=== PATIENT | female | born 1990 | race Caucasian/White ===

== ENCOUNTER → 2016-04-09 | Outpatient (CLI) | payer BC, MEDICAID ==
[~2016-04-09] MED LIST: /MOM400 PO; ACET50TA PO; ANUS2.5C2 PR; BUSP10TA GT; DOCU10ELUD; HEMOSUP20 PR; IBUP80TA PO; LEVO125T3 PO; PRENTAB9 PO; TUMS500C PO
[2016-04-09 13:33] LABS: FREE T4 1.19 NG/DL (0.76-1.46)
== END ==
LOC: M SMT 10:07
PROVIDERS: ATTEND Obstetrics & Gynecology
DX: E07.9 Disorder of thyroid, unspecified (principal)

== ENCOUNTER → 2016-04-14 | Outpatient (REF) | payer BC, MEDICAID | LOC: M LABDRWAD 19:55 | PROVIDERS: ATTEND Obstetrics & Gynecology | DX: N91.2 Amenorrhea, unspecified (principal) ==

== ENCOUNTER → 2016-04-16 | Outpatient (CLI) | payer BC, MEDICAID | LOC: M LAB 12:16 | PROVIDERS: ATTEND Obstetrics & Gynecology | DX: N91.2 Amenorrhea, unspecified (principal) ==

== ENCOUNTER → 2016-05-06 | Outpatient (CLI) | payer BC, MEDICAID ==
[2016-05-06 14:40] LABS: FREE T4 1.18 NG/DL (0.76-1.46)
== END ==
LOC: M SMT 10:26
PROVIDERS: ATTEND Obstetrics & Gynecology
DX: Z34.81 Encounter for supervision of other normal pregnancy, first trimester (principal); Z36 Encounter for antenatal screening of mother

== ENCOUNTER → 2016-05-20 | Outpatient (CLI) | payer BC, MEDICAID ==
[2016-05-20 13:47] LABS: BASO % 0.5 % (0.0-1.0); EOS # 0.1 K/mm3 (0.0-0.50); EOS % 1.7 % (0.0-3.0); LARGE UNSTAINED CELL # 0.1 K/mm3 (0.0-0.4); LARGE UNSTAINED CELL % 1.5 % (0.0-4.0); LYMPH # 1.5 K/mm3 (1.5-6.5); LYMPH % 21.7 % (24.0-44.0); MEAN CORPUSCULAR HEMOGLOBIN 32.2 pg (27.0-33.0); MEAN CORPUSCULAR HGB CONC 34.4 g/dl (32.0-36.5); MEAN CORPUSCULAR VOLUME 93.6 fl (80.0-96.0); MONO # 0.4 K/mm3 (0.0-0.8); MONO % 5.4 % (0.0-5.0); NEUTROPHILS # 4.5 K/mm3 (1.8-7.7); NEUTROPHILS % 69.2 % (36.0-66.0); PLATELET COUNT, AUTOMATED 207 k/mm3 (150-450); RED CELL DISTRIBUTION WIDTH 12.4 % (11.5-14.5); WHITE BLOOD COUNT 6.5 K/mm3 (4.0-10.0)
[2016-05-20 14:12] LABS: CONTROL LINE INT CTR LINE PRESENT; HIV SCRN NEGATIVE (NEGATIVE); HIV SCRN1 NEGATIVE (NEGATIVE)
[2016-05-21 10:01] LABS: HBsAg Prenatal NEGATIVE (NEGATIVE)
== END ==
LOC: M SMT 08:44
PROVIDERS: ATTEND Obstetrics & Gynecology
DX: Z34.81 Encounter for supervision of other normal pregnancy, first trimester (principal); Z36 Encounter for antenatal screening of mother

== ENCOUNTER → 2016-05-27 | Outpatient (CLI) | payer BC, MEDICAID | LOC: M SMT 09:44 | PROVIDERS: ATTEND Obstetrics & Gynecology | DX: Z36 Encounter for antenatal screening of mother (principal); Z3A.09 9 weeks gestation of pregnancy ==

== ENCOUNTER → 2016-06-10 | Outpatient (CLI) | payer BC, MEDICAID ==
[2016-06-10 13:51] LABS: FREE T4 1.25 NG/DL (0.76-1.46)
== END ==
LOC: M SMT 09:35
PROVIDERS: ATTEND Obstetrics & Gynecology
DX: O99.281 Endocrine, nutritional and metabolic diseases complicating pregnancy, first trimester (principal)

== ENCOUNTER → 2016-07-10 | Outpatient (CLI) | payer BC, MEDICAID ==
[2016-07-10 13:56] LABS: FREE T4 1.15 NG/DL (0.76-1.46)
== END ==
LOC: M SMT 10:47
PROVIDERS: ATTEND Advanced Practice Midwife
DX: Z34.82 Encounter for supervision of other normal pregnancy, second trimester (principal); Z36 Encounter for antenatal screening of mother

== ENCOUNTER → 2016-09-19 | Outpatient (CLI) | payer BC, MEDICAID ==
[2016-09-19 13:03] LABS: MEAN CORPUSCULAR HEMOGLOBIN 33.9 pg (27.0-33.0); MEAN CORPUSCULAR HGB CONC 35.5 g/dl (32.0-36.5); MEAN CORPUSCULAR VOLUME 95.7 fl (80.0-96.0); RED CELL DISTRIBUTION WIDTH 12.5 % (11.5-14.5); WHITE BLOOD COUNT 10.1 K/mm3 (4.0-10.0)
[2016-09-19 13:33] LABS: FREE T4 1.16 NG/DL (0.76-1.46)
== END ==
LOC: M SMT 09:47
PROVIDERS: ATTEND Advanced Practice Midwife
DX: Z34.82 Encounter for supervision of other normal pregnancy, second trimester (principal); Z36 Encounter for antenatal screening of mother

== ENCOUNTER → 2016-11-27 | Outpatient (REF) | payer BC, MEDICAID ==
[~2016-11-27] MED LIST changes: +IBUP-1114 PO; -LEVO125T3 PO; +LEVO125T4 PO; +LEVO137T2 PO
== END ==
LOC: M LAB REF 13:27
PROVIDERS: ATTEND Advanced Practice Midwife
DX: Z34.83 Encounter for supervision of other normal pregnancy, third trimester (principal); Z36 Encounter for antenatal screening of mother

== ENCOUNTER → 2016-12-01 | Outpatient (CLI) | payer BC, MEDICAID ==
[2016-12-01 12:45] LABS: FREE T4 0.98 NG/DL (0.76-1.46)
== END ==
LOC: M LAB 11:06
PROVIDERS: ATTEND Advanced Practice Midwife
DX: Z34.83 Encounter for supervision of other normal pregnancy, third trimester (principal); Z36 Encounter for antenatal screening of mother

== ENCOUNTER 2016-12-21 15:37 | Outpatient (CLI) | payer BC, MEDICAID ==
[~2016-12-21] VITALS: Ht 172.7 cm; Wt 125.4 kg
[~2016-12-21 15:37] MED LIST changes: -IBUP-1114 PO; -LEVO137T2 PO
[2016-12-21 16:06] VITALS: BP 138/88
[2016-12-21] MEDS ORDERED: LEVO137T2 PO (16:16)
== END 2016-12-21 17:25 | disposition home or self-care (01) ==
LOC: M LDO 15:37
PROVIDERS: ATTEND Obstetrics & Gynecology
DX: O47.1 False labor at or after 37 completed weeks of gestation (principal); Z3A.39 39 weeks gestation of pregnancy; Z91.040 Latex allergy status

== ENCOUNTER 2016-12-24 21:31 | Inpatient (IN) | payer BC, MEDICAID ==
[~2016-12-24] VITALS: Ht 175.3 cm; Wt 126.0 kg
[~2016-12-24 21:31] MED LIST changes: +LEVO137T2 PO
[2016-12-24 21:44] VITALS: BP 132/68
[2016-12-24] MEDS ORDERED: PENICILLIN G POTASSIUM IV 5 MU in D5W MINI-BAG PLUS 100 ML IV ONE (22:00)
[2016-12-24] MEDS ORDERED: PENICILLIN G POTASSIUM 5 MU VIAL As Ordered ONE (22:03)
[2016-12-24 22:24] LABS: MEAN CORPUSCULAR HEMOGLOBIN 32.7 pg (27.0-33.0); MEAN CORPUSCULAR HGB CONC 36.2 g/dl (32.0-36.5); MEAN CORPUSCULAR VOLUME 90.5 fl (80.0-96.0); RED CELL DISTRIBUTION WIDTH 13.5 % (11.5-14.5); WHITE BLOOD COUNT 11.3 K/mm3 (4.0-10.0)
[2016-12-24] MEDS ORDERED: OXYTOCIN 30 UNITS IN 0.9% NaCl 500ML IV BAG (J2590) As Ordered ONE (22:26)
[2016-12-24 22:30] VITALS: BP 130/69
[2016-12-24] MEDS: IBUPROFEN 800 MG TAB PO PRN (22:45)
[2016-12-24] MEDS ORDERED: OXYTOCIN DRIP 30 UNITS in APPROPRIATE DILUENT 1 EA IV ONE (22:45)
[2016-12-24] MEDS ORDERED: ACETAMINOPHEN 500 MG TAB PO PRN (22:45)
[2016-12-24] MEDS ORDERED: METHYLERGONOVINE MALEATE 0.2 MG TAB PO PRN (22:45)
[2016-12-24] MEDS ORDERED: DOCUSATE SODIUM 100 MG CAP PO PRN (22:45)
[2016-12-24] MEDS ORDERED: MEASLES,MUMPS,RUBELLA VACCINE INJ (MMR-II) (90707) SC SCH (22:45)
[2016-12-24] MEDS ORDERED: DIBUCAINE 1% OINTMENT 30GM TOP PRN (22:45)
[2016-12-24 22:49] VITALS: BP 137/63
[2016-12-24 23:04] VITALS: BP 135/69
[2016-12-24 23:19] VITALS: BP 131/66
[2016-12-25 00:10] VITALS: BP 133/70
[2016-12-25 06:33] VITALS: BP 123/72
--- NOTE | 2016-12-25 07:05 | HPE ---
DATE OF ADMISSION: 12/24/2016 HISTORY OF PRESENT ILLNESS: A 26-year-old 6, para 2 female at 40 and 2/7 weeks gestation by last menstrual period (LMP) consistent with seven-week ultrasound, estimated date of confinement (EDC) 12/22/2016, presents with regular contractions every 5-6 minutes for the last several hours. She experienced a gush of fluid in the parking lot after arriving at the hospital, and continues to leak. Her contractions increased in intensity. COURSE: Initiated care at nine weeks gestation at 05/20/2016. Her blood pressure 118/74. course was unremarkable. OBSTETRICAL HISTORY: 1. April 2012: 41-week vaginal delivery, 7 pound 10 ounce male. 2. January 2015: 40-week vaginal delivery, 7 pound 13 ounce female infant. She has also had three miscarriages. MEDICAL HISTORY: Hypothyroidism on Synthroid. SURGICAL HISTORY: None. ALLERGIES: None. SOCIAL HISTORY: The patient is . Denies cigarettes, alcohol or drug use. FAMILY HISTORY: Noncontributory. PHYSICAL EXAMINATION: Blood pressure 132/84. She appears uncomfortable. HEAD/NECK: Normal. LUNGS: Clear. HEART: Regular rate and rhythm. ABDOMEN: Nontender, gravid. heart tones category one. STERILE VAGINAL EXAM: 6 cm, 90% effaced, -1 station, grossly ruptured, clear fluid. EXTREMITIES: Nontender. LABORATORY DATA: Blood type O positive. Rubella immune. RPR nonreactive. Hepatitis B and C negative. HIV negative. GBS positive. ASSESSMENT: A 26-year-old 6, para 2 female at 40 and 2/7 weeks gestation, presents in active labor with ruptured membranes. The patient is admitted on 12/24/2016. Plan to start antibiotics for group B streptococcus (GBS) prophylaxis.
[2016-12-25] MEDS: IBUPROFEN 800 MG TAB PO PRN ×3 (08:17→23:42)
[2016-12-25] MEDS: PRENATAL VITAMINS CHEWABLE TABLET PO SCH (08:17)
--- NOTE | 2016-12-25 08:47 | DN ---
DATE: 12/24/2016 PREDELIVERY DIAGNOSIS: 40 plus weeks labor. POST DELIVERY DIAGNOSIS: Delivered. PROCEDURE: Spontaneous vaginal delivery. SHIRT OPERATOR: Dr. Jarvis Phillips. ANESTHESIA: None. ESTIMATED BLOOD LOSS: 300 mL. FINDINGS: 7 pound 8 ounce female infant, 3400 grams, 8 and 9. DELIVERY SUMMARY: After a short second stage, the patient had spontaneous delivery of a 7 pound 8 ounce female with no delivered anesthesia. Loose nuchal cord times one was reduced. Manually the shoulders delivered with ease. The cried spontaneously and was handed to the mother. The cord was doubly clamped and cut. Placenta delivered spontaneously and appeared to be intact. Patient received IV Pitocin after delivery of the placenta. There were no vaginal lacerations present. There were no sponges to count.
[2016-12-25] MEDS: LEVOTHYROXINE 137MCG TABLET (0.137MG) PO SCH (09:22)
[2016-12-25] MEDS: RHOGAM 300 MCG (1500 IU) INJ (J2790) IM SCH (10:21)
[2016-12-25 17:58] VITALS: BP 126/76
[2016-12-26 06:27] VITALS: BP 121/68
[2016-12-26] MEDS: LEVOTHYROXINE 137MCG TABLET (0.137MG) PO SCH (06:56)
[2016-12-26] MEDS: IBUPROFEN 800 MG TAB PO PRN (07:01)
[2016-12-26] MEDS ORDERED: ACET50TA PO (09:12)
[2016-12-26] MEDS ORDERED: IBUP-1114 PO (09:12)
[2016-12-26] MEDS: PRENATAL VITAMINS CHEWABLE TABLET PO SCH (09:56)
== END 2016-12-26 15:00 | disposition home or self-care (01) | DRG 560 ==
LOC: M LDI 21:31 → M OBS 12-25
PROVIDERS: ADMIT Specialist; ATTEND Specialist
PROC: 10E0XZZ Delivery of Products of Conception, External Approach (ICD-10-PCS; principal; 2016-12-24)
DX: O48.0 Post-term pregnancy (principal); O69.82X0 Labor and delivery complicated by other cord entanglement, without compression, not applicable or unspecified; Z37.0 Single live birth; Z3A.40 40 weeks gestation of pregnancy

== ENCOUNTER → 2017-03-19 | Outpatient (CLI) | payer BC, MEDICAID ==
[~2017-03-19] MED LIST changes: +IBUP-1114 PO
[2017-03-19 14:23] LABS: FREE T4 1.15 NG/DL (0.76-1.46)
== END ==
LOC: M SMT 09:23
PROVIDERS: ATTEND Advanced Practice Midwife
DX: E03.9 Hypothyroidism, unspecified (principal)

== ENCOUNTER → 2017-07-01 | Outpatient (CLI) | payer BC, MEDICAID ==
[2017-07-01 14:31] LABS: FREE T4 0.94 NG/DL (0.76-1.46)
== END ==
LOC: M SMT 10:28
DX: E07.9 Disorder of thyroid, unspecified (principal)

== ENCOUNTER → 2017-09-07 | Outpatient (CLI) | payer BC, MEDICAID ==
[2017-09-07 11:29] LABS: FREE T4 0.95 NG/DL (0.76-1.46)
== END ==
LOC: M SMT 09:19
DX: E03.9 Hypothyroidism, unspecified (principal)
CPT/HCPCS: 84443

== ENCOUNTER → 2017-12-14 | Outpatient (CLI) | payer BC, MEDICAID ==
[2017-12-14 23:10] LABS: FREE T4 1.02 NG/DL (0.76-1.46)
== END ==
LOC: M SMT 09:48
DX: O99.281 Endocrine, nutritional and metabolic diseases complicating pregnancy, first trimester (principal); Z3A.00 Weeks of gestation of pregnancy not specified
CPT/HCPCS: 84443

== ENCOUNTER → 2017-12-21 | Outpatient (CLI) | payer BC, MEDICAID ==
[2017-12-21 15:08] LABS: HCG, SERUM QUANTITATIVE 669 MIU/ML
== END ==
LOC: M SMT 09:08
DX: Z32.01 Encounter for pregnancy test, result positive (principal)
CPT/HCPCS: 84702

== ENCOUNTER → 2017-12-23 | Outpatient (CLI) | payer BC, MEDICAID ==
[2017-12-23 11:18] LABS: HCG, SERUM QUANTITATIVE 1538 MIU/ML
== END ==
LOC: M SMT 09:07
DX: Z32.01 Encounter for pregnancy test, result positive (principal)
CPT/HCPCS: 84702

== ENCOUNTER → 2018-01-14 | Outpatient (CLI) | payer BC, MEDICAID ==
[2018-01-14 13:48] LABS: FREE T4 1.11 NG/DL (0.76-1.46)
== END ==
LOC: M SMT 09:13
DX: Z34.81 Encounter for supervision of other normal pregnancy, first trimester (principal); Z36.89 Encounter for other specified antenatal screening
CPT/HCPCS: 84443

== ENCOUNTER → 2018-01-30 | Outpatient (CLI) | payer BC, MEDICAID ==
[2018-01-30 10:29] LABS: BASO % 0.6 % (0.0-1.0); EOS # 0.1 10^3/uL (0.0-0.50); EOS % 1.4 % (0.0-3.0); HEMATOCRIT 39.1 % (36.0-47.0); HEMOGLOBIN 13.8 g/dl (12.0-15.5); IMMATURE GRANULOCYTE % 0.3 % (0-3.0); LYMPH # 1.6 10^3/uL (1.5-6.5); LYMPH % 24.6 % (24.0-44.0); MEAN CORPUSCULAR HEMOGLOBIN 32.5 pg (27.0-33.0); MEAN CORPUSCULAR HGB CONC 35.3 g/dl (32.0-36.5); MONO # 0.4 10^3/uL (0.0-0.8); MONO % 6.7 % (0.0-5.0); NEUTROPHILS # 4.3 10^3/uL (1.8-7.7); NEUTROPHILS % 66.4 % (36.0-66.0); PLATELET COUNT, AUTOMATED 179 10^3/uL (150-450); RED BLOOD COUNT 4.25 10^6/uL (4.00-5.40); RED CELL DISTRIBUTION WIDTH 12.8 % (11.5-14.5); WHITE BLOOD COUNT 6.4 10^3/uL (4.0-10.0)
[2018-01-30 14:08] LABS: CHLAMYDIA DNA AMPLIFICATION NEGATIVE (NEGATIVE); GC DNA AMPLIFICATION NEGATIVE (NEGATIVE)
[2018-02-01 11:12] LABS: HEPATITIS C VIRUS ABY INDEX < 0.0 INDEX (<0.8)
[2018-02-01 11:12] LABS: HBsAg Prenatal NEGATIVE (NEGATIVE); HIV 1&2 SCREEN CENTAUR NEGATIVE (NEGATIVE); RUBELLA IgG QUALITATIVE IMMUNE (IMMUNE)
== END ==
LOC: M LAB 09:00
DX: Z34.81 Encounter for supervision of other normal pregnancy, first trimester (principal); Z36.89 Encounter for other specified antenatal screening; Z3A.01 Less than 8 weeks gestation of pregnancy
CPT/HCPCS: 86762

== ENCOUNTER → 2018-02-01 | Outpatient (CLI) | payer BC, MEDICAID | LOC: M SMT 11:15 | DX: Z36.89 Encounter for other specified antenatal screening (principal); Z3A.00 Weeks of gestation of pregnancy not specified | CPT/HCPCS: 36415 ==

== ENCOUNTER → 2018-02-10 | Outpatient (CLI) | payer BC, MEDICAID ==
[2018-02-10 14:29] LABS: FREE T4 1.14 NG/DL (0.76-1.46)
== END ==
LOC: M SMT 09:50
DX: O99.281 Endocrine, nutritional and metabolic diseases complicating pregnancy, first trimester (principal)
CPT/HCPCS: 84443

== ENCOUNTER 2018-04-19 01:43 | Emergency (ER) | payer BC, MEDICAID ==
[~2018-04-19] VITALS: Ht 175.3 cm; Wt 105.9 kg
[~2018-04-19 01:43] MED LIST changes: +CEFD300CAP PO; +MAPA500T2 PO
[2018-04-19] MEDS ORDERED: MAGN400C2 PO (01:58)
[2018-04-19] MEDS: ONDANSETRON 4MG/2ML VIAL (J2405) IV ONE ×2 (03:15→04:01)
[2018-04-19] MEDS ORDERED: NS 1,000 ML IV ONE (03:15)
[2018-04-19 03:30] LABS: BASO % 0.2 % (0.0-1.0); EOS % 0.3 % (0.0-3.0); HEMATOCRIT 37.8 % (36.0-47.0); HEMOGLOBIN 13.5 g/dl (12.0-15.5); LYMPH % 7.4 % (24.0-44.0); MEAN CORPUSCULAR HEMOGLOBIN 33.8 pg (27.0-33.0); MEAN CORPUSCULAR HGB CONC 35.7 g/dl (32.0-36.5); MEAN CORPUSCULAR VOLUME 94.5 fl (80.0-96.0); MONO # 0.6 10^3/uL (0.0-0.8); MONO % 4.6 % (0.0-5.0); NEUTROPHILS # 11.9 10^3/uL (1.8-7.7); NEUTROPHILS % 86.4 % (36.0-66.0); PLATELET COUNT, AUTOMATED 172 10^3/uL (150-450); WHITE BLOOD COUNT 13.8 10^3/uL (4.0-10.0)
[2018-04-19 04:02] LABS: BLOOD UREA NITROGEN 8 MG/DL (7-18); CALCIUM LEVEL 8.2 MG/DL (8.5-10.1); CARBON DIOXIDE LEVEL 21 MEQ/L (21-32); CHLORIDE LEVEL 109 MEQ/L (98-107); CREATININE FOR GFR 0.48 MG/DL (0.55-1.30); GLOMERULAR FILTRATION RATE > 60.0 (>60); GLUCOSE, FASTING 97 MG/DL (70-100); MAGNESIUM LEVEL 1.9 MG/DL (1.8-2.4); POTASSIUM SERUM 3.8 MEQ/L (3.5-5.1); SODIUM LEVEL 139 MEQ/L (136-145)
[2018-04-19 06:30] VITALS: BP 121/60
[2018-04-19] MEDS ORDERED: VANC125C2 PO (09:21)
--- NOTE | 2018-04-19 09:23 | ED PDOC ---
Post-Departure Follow-Up AFTER DISCHARGE, RESULTS OF CDIFF CAME BACK POSITIVE. PATIENT NOTIFIED BY, RX F OR MANJUO SENT TO PREFERRED PHARMACY, AND DR SCHMIDT NOTIFIED FOR FOLLOW UP CARE. ANNALISE GUO, DO Apr 19, 2018 09:22
--- NOTE | 2018-04-19 14:49 | ECGEPIP ---
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
== END 2018-04-19 06:48 | disposition home or self-care (01) ==
LOC: M ED 01:43
DX: I95.1 Orthostatic hypotension (principal); R55 Syncope and collapse

== ENCOUNTER → 2018-04-29 | Outpatient (REF) | payer BC, MEDICAID ==
[~2018-04-29] MED LIST changes: +MAGN400C2 PO; +VANC125C2 PO
== END ==
LOC: M SFHCPLAZ 12:14
PROVIDERS: ATTEND Nurse Practitioner Family
DX: A04.72 Enterocolitis due to Clostridium difficile, not specified as recurrent (principal)

== ENCOUNTER → 2018-05-07 | Outpatient (REF) | payer BC, MEDICAID | LOC: M SFHCPLAZ 12:21 | PROVIDERS: ATTEND Nurse Practitioner Family | DX: J11.1 Influenza due to unidentified influenza virus with other respiratory manifestations (principal); A04.72 Enterocolitis due to Clostridium difficile, not specified as recurrent; Z53.9 Procedure and treatment not carried out, unspecified reason ==

== ENCOUNTER → 2018-05-08 | Outpatient (CLI) | payer BC, MEDICAID ==
[2018-05-08 11:06] LABS: BLOOD UREA NITROGEN 3 MG/DL (7-18); CALCIUM LEVEL 7.9 MG/DL (8.5-10.1); CARBON DIOXIDE LEVEL 27 MEQ/L (21-32); CHLORIDE LEVEL 106 MEQ/L (98-107); CREATININE FOR GFR 0.47 MG/DL (0.55-1.30); GLOMERULAR FILTRATION RATE > 60.0 (>60); GLUCOSE, FASTING 84 MG/DL (70-100); POTASSIUM SERUM 3.7 MEQ/L (3.5-5.1); SODIUM LEVEL 140 MEQ/L (136-145)
== END ==
LOC: M LAB 10:06
PROVIDERS: ATTEND Nurse Practitioner Family
DX: A04.72 Enterocolitis due to Clostridium difficile, not specified as recurrent (principal)

== ENCOUNTER → 2018-05-28 | Outpatient (CLI) | payer BC, MEDICAID ==
[2018-05-28 18:42] LABS: FREE T4 1.06 NG/DL (0.76-1.46); THYROID STIMULATING HORMONE 1.6 uIU/ML (0.358-3.740)
== END ==
LOC: M SMT 14:57
PROVIDERS: ATTEND Advanced Practice Midwife
DX: O99.282 Endocrine, nutritional and metabolic diseases complicating pregnancy, second trimester (principal)

== ENCOUNTER → 2018-06-03 | Outpatient (REF) | payer BC, MEDICAID | LOC: M LAB REF 12:55 | PROVIDERS: ATTEND Advanced Practice Midwife | DX: Z34.82 Encounter for supervision of other normal pregnancy, second trimester (principal); Z3A.00 Weeks of gestation of pregnancy not specified ==

== ENCOUNTER → 2018-06-10 | Outpatient (REF) | payer BC, MEDICAID | LOC: M LAB REF 17:26 | PROVIDERS: ATTEND Obstetrics & Gynecology | DX: Z34.82 Encounter for supervision of other normal pregnancy, second trimester (principal) ==

== ENCOUNTER → 2018-06-14 | Outpatient (CLI) | payer BC, MEDICAID ==
[2018-06-14 13:20] LABS: HEMATOCRIT 36.9 % (36.0-47.0); HEMOGLOBIN 12.8 g/dl (12.0-15.5); MEAN CORPUSCULAR HEMOGLOBIN 33.4 pg (27.0-33.0); MEAN CORPUSCULAR HGB CONC 34.7 g/dl (32.0-36.5); MEAN CORPUSCULAR VOLUME 96.3 fl (80.0-96.0); PLATELET COUNT, AUTOMATED 151 10^3/uL (150-450); RED BLOOD COUNT 3.83 10^6/uL (4.00-5.40); WHITE BLOOD COUNT 9.1 10^3/uL (4.0-10.0)
[2018-06-14 13:53] LABS: GLUCOSE CHALLENGE TEST 1 HOUR 98 MG/DL (LESS THAN 140)
[2018-06-14 14:20] LABS: HIV 1&2 SCREEN CENTAUR NEGATIVE (NEGATIVE)
== END ==
LOC: M SMT 09:42
PROVIDERS: ATTEND Advanced Practice Midwife
DX: Z34.82 Encounter for supervision of other normal pregnancy, second trimester (principal); Z36.89 Encounter for other specified antenatal screening

== ENCOUNTER 2018-08-01 23:11 | Outpatient (CLI) | payer BC, MEDICAID ==
[~2018-08-01] VITALS: Ht 172.7 cm; Wt 116.3 kg
[~2018-08-01 23:11] MED LIST changes: -/MOM400 PO; -ACET50TA PO; -DOCU10ELUD; +DOCU5LIQ; +MAPA500T17 PO; +MILK10SU PO; -VANC125C2 PO; +VANC125C3 PO
== END 2018-08-02 00:17 | disposition home or self-care (01) ==
LOC: M LDO 23:11
PROVIDERS: ATTEND Obstetrics & Gynecology
DX: O26.893 Other specified pregnancy related conditions, third trimester (principal); Z3A.36 36 weeks gestation of pregnancy
CPT/HCPCS: 59025; 87081; G0378; G0463

== ENCOUNTER 2018-08-20 04:15 | Inpatient (IN) | payer BC, MEDICAID ==
[~2018-08-20] VITALS: Ht 172.7 cm; Wt 118.6 kg
[2018-08-20 04:38] VITALS: BP 132/64
[2018-08-20] MEDS ORDERED: ACETAMINOPHEN TAB 650MG DOSE (2X325MG) PO PRN (04:45)
[2018-08-20] MEDS ORDERED: DOCUSATE SODIUM 100 MG CAP PO PRN (04:45)
[2018-08-20] MEDS ORDERED: DIBUCAINE 1% OINTMENT 30GM TOP PRN (04:45)
[2018-08-20] MEDS ORDERED: MEASLES,MUMPS,RUBELLA VACCINE INJ (MMR-II) (90707) SC SCH (04:45)
[2018-08-20] MEDS ORDERED: RHOGAM 300 MCG (1500 IU) INJ (J2790) IM SCH (04:45)
[2018-08-20] MEDS ORDERED: PROMETHAZINE 25 MG TAB PO PRN (04:45)
[2018-08-20] MEDS ORDERED: IBUPROFEN 600 MG TAB PO PRN (04:45)
[2018-08-20] MEDS ORDERED: ONDANSETRON 4MG/2ML VIAL (J2405) IV PRN (04:45)
[2018-08-20] MEDS: IBUPROFEN 800 MG TAB PO PRN ×2 (04:48→13:41)
--- NOTE | 2018-08-20 04:48 | NUR ---
L&D H&P HPI: 27 year old at 38+5 weeks estimated gestation. Expected date of confinement: 08/29/18. dated by LMP c/w first TM US. Presented in the s econd stage of labor. Arrived by ambulance. Complains of contractions every 2-3 min. Denies vaginal bleeding, loss of fluid. Reports regular movement. course: Hypothyroidism labs: Blood type O+, antibody screen negative, rubella immune, VDRL nonreactive , hepatitis B surface antigen negative, HIV negative, hepatitis C antibody negative, GC/CT negative, aneuploidy/maternal serum screening: low risk, Panorama, 1 hour glucose challenge test: 98, GBS negative History Past medical history: Hypothyroidism, depression Surgical history: none Medications: PNV, Synthroid 125mcg daily Allergies: NKDA MEDICAL CUSTOMER SERVICE REPRESENTATIVE history: no dysplasia or STI/gHSV OB history: x 3 all term. SAB x 3. Social history: no t/e/d Family history: none Objective Vitals: Normotensive, normal heart rate, afebrile Heart: Regular rate and rhythm. No murmurs, rubs or gallops. Lungs: Clear to auscultation bilaterally. No wheezes, crackles, rales or rhonchi. Abdomen: Uterine fundal height consistent with dates. No guarding or rebound tenderness. Extremities: No clubbing, cyanosis or edema. Normal deep tendon reflexes. Sterile vaginal exam: 10 cm, 100 %effacement, 0 station, cephalic, intact External monitoring: heart rate category 1 Tocodynamometer: contractions occurring every 2-3 min Assessment/Plan 27 year old at 38+5 weeks gestation. Diagnosis: Active labor at term. Reassuring and maternal status. -Admit to labor and delivery with routine labs and orders -External monitoring and tocodynamometer -Pediatrics and anesthesia consultations as needed. Dr. Guido Vale, DO, FACOG
--- NOTE | 2018-08-20 04:51 | NUR ---
Delivery note Spontaneous vaginal delivery Estimated gestational age at delivery: 38+5 weeks The active phase and second stage of labor progressed in normal fashion without epidural anesthesia. Patient did not receive Pitocin labor augmentation. The head delivered left occiput anterior and restituted left occiput transverse. No nuchal cord was noted. The anterior shoulder delivered with gentle downward guidance and the remainder of the body delivered with ease. Cord clamping was delayed for approximately 1 minute after delivery. After doubly clamping the cord, I guided the FOB to cut the cord. The was placed on the patient's chest for immediate bonding. data: Apgars 8 and 9. weight 3500 grams 7 pounds, 11 ounces. Time of delivery: 0424. Sex: Female. The third stage of labor was actively managed with a bolus of IV Pitocin (30 units in 500 mL of normal saline). The placenta delivered completely intact with no missing cotyledons at 0430. A three-vessel cord with a central insertion was noted. After delivery of the placenta, the uterine fundus was approximately 2 cm below the umbilicus and firm. IV Pitocin was continued to maintain uterine tone. A normal, low level of uterine bleeding was noted. The cervix, vagina, vulva and perineum were inspected for lacerations. No laceration was noted. Excellent hemostasis was noted. Estimated blood loss: 200ml. All sponges, needles, and instruments were accounted for per INFORMATION ASSURANCE ENGINEER department protocol. Guido Vale D.O., F.Radha.Momo.
[2018-08-20] MEDS ORDERED: CVS1CAP2 PO (04:52)
[2018-08-20 04:59] VITALS: BP 122/58
[2018-08-20] MEDS ORDERED: OXYTOCIN INJ 10 UNITS/ML VIAL (J2590) IM ONE (05:00)
[2018-08-20 05:17] LABS: HEMATOCRIT 38.4 % (36.0-47.0); MEAN CORPUSCULAR HEMOGLOBIN 32.3 pg (27.0-33.0); MEAN CORPUSCULAR HGB CONC 33.9 g/dl (32.0-36.5); MEAN CORPUSCULAR VOLUME 95.3 fl (80.0-96.0); PLATELET COUNT, AUTOMATED 176 10^3/uL (150-450); RED BLOOD COUNT 4.03 10^6/uL (4.00-5.40); WHITE BLOOD COUNT 14.5 10^3/uL (4.0-10.0)
[2018-08-20 05:41] VITALS: BP 116/64
[2018-08-20 06:40] VITALS: BP 133/62
[2018-08-20] MEDS: ACETAMINOPHEN 500 MG TAB PO PRN ×2 (08:07→19:48)
[2018-08-20] MEDS: LEVOTHYROXINE 125MCG TABLET (0.125MG) PO SCH (09:37)
[2018-08-20] MEDS: PRENATAL VITAMINS CHEWABLE TABLET PO SCH (13:00)
[2018-08-20 18:05] VITALS: BP 133/68
[2018-08-21] MEDS: IBUPROFEN 800 MG TAB PO PRN (04:15)
[2018-08-21 06:00] VITALS: BP 118/65
[2018-08-21] MEDS: LEVOTHYROXINE 125MCG TABLET (0.125MG) PO SCH (06:04)
[2018-08-21] MEDS ORDERED: PRENTAB9 PO (08:39)
[2018-08-21] MEDS ORDERED: MAPA500T2 PO ×2 (08:39)
[2018-08-21] MEDS ORDERED: IBUP-1114 PO ×2 (08:39)
[2018-08-21] MEDS ORDERED: ADACEL/BOOSTRIX VACCINE (DIPHTH/PERTUSS/ACELL/TETANUS)0.5ML SYR (90715) IM ONE (09:00)
[2018-08-21] MEDS: PRENATAL VITAMINS CHEWABLE TABLET PO SCH (09:46)
[2018-08-21] MEDS: ACETAMINOPHEN 500 MG TAB PO PRN (12:51)
== END 2018-08-21 14:20 | disposition home or self-care (01) | DRG 560 ==
LOC: M LDO 04:15 → M LDI 04:17 → M OBS 06:38
PROVIDERS: ADMIT Obstetrics & Gynecology; ATTEND Obstetrics & Gynecology
PROC: 10E0XZZ Delivery of Products of Conception, External Approach (ICD-10-PCS; principal; 2018-08-20)
DX: O99.284 Endocrine, nutritional and metabolic diseases complicating childbirth (principal); E03.9 Hypothyroidism, unspecified; Z37.0 Single live birth; Z3A.38 38 weeks gestation of pregnancy

== ENCOUNTER → 2018-10-13 | Outpatient (CLI) | payer BC, MEDICAID ==
[~2018-10-13] MED LIST changes: +CVS1CAP2 PO
[2018-10-13 18:08] LABS: FREE T4 1.28 NG/DL (0.76-1.46); THYROID STIMULATING HORMONE 0.115 uIU/ML (0.358-3.740)
== END ==
LOC: M SMT 13:34
PROVIDERS: ATTEND Advanced Practice Midwife
DX: E03.9 Hypothyroidism, unspecified (principal)

== ENCOUNTER → 2018-12-02 | Outpatient (REF) | payer BC, MEDICAID ==
[2018-12-02 17:07] LABS: ALBUMIN 4.1 GM/DL (3.2-5.2); ALT/SGPT 28 U/L (12-78); BILIRUBIN,TOTAL 0.4 MG/DL (0.2-1.0); BLOOD UREA NITROGEN 8 MG/DL (7-18); CALCIUM LEVEL 8.9 MG/DL (8.5-10.1); CARBON DIOXIDE LEVEL 27 MEQ/L (21-32); CHLORIDE LEVEL 108 MEQ/L (98-107); CHOLESTEROL LEVEL 189 MG/DL (<200); CHOLESTEROL RISK RATIO 3.375 (<5); CREATININE FOR GFR 0.82 MG/DL (0.55-1.30); GLOMERULAR FILTRATION RATE > 60.0 (>60); GLUCOSE, FASTING 111 MG/DL (70-100); HDL CHOLESTEROL 56 MG/DL (>40); LDL CHOLESTEROL 115 MG/DL (<100); NON-HDL-C 133 MG/DL; POTASSIUM SERUM 3.9 MEQ/L (3.5-5.1); SODIUM LEVEL 142 MEQ/L (136-145); TOTAL PROTEIN 7.3 GM/DL (6.4-8.2); TRIGLYCERIDES LEVEL 91 MG/DL (<150)
== END ==
LOC: M SFHCPLAZ 15:08
PROVIDERS: ATTEND Nurse Practitioner Family
DX: Z13.220 Encounter for screening for lipoid disorders (principal); E03.9 Hypothyroidism, unspecified; Z68.36 Body mass index [BMI] 36.0-36.9, adult

== ENCOUNTER → 2019-01-20 | Outpatient (CLI) | payer BC, MEDICAID | LOC: M SMT 10:30 | PROVIDERS: ATTEND Nurse Practitioner Family | DX: E03.9 Hypothyroidism, unspecified (principal) ==

== ENCOUNTER → 2019-04-19 | Outpatient (REF) | payer BC, MEDICAID ==
[2019-04-19 16:50] LABS: FREE T4 0.96 NG/DL (0.76-1.46); THYROID STIMULATING HORMONE 4.43 uIU/ML (0.358-3.740)
== END ==
LOC: M SFHCADAM 14:59
PROVIDERS: ATTEND Physician Assistant Medical
DX: E03.9 Hypothyroidism, unspecified (principal)

== ENCOUNTER → 2019-05-26 | Outpatient (REF) | payer BC, MEDICAID | LOC: M LAB REF 11:11 | PROVIDERS: ATTEND Dermatology | DX: D48.9 Neoplasm of uncertain behavior, unspecified (principal) ==

== ENCOUNTER → 2019-06-16 | Outpatient (REF) | payer BC, MEDICAID | LOC: M SFHCADAM 10:39 | PROVIDERS: ATTEND Physician Assistant Medical | DX: E03.9 Hypothyroidism, unspecified (principal) ==

== ENCOUNTER → 2020-02-10 | Outpatient (REF) | payer BC, MEDICAID ==
[2020-02-10 14:02] LABS: FREE T4 1.01 NG/DL (0.76-1.46); THYROID STIMULATING HORMONE 2.76 uIU/ML (0.358-3.740)
== END ==
LOC: M SFHCADAM 10:21
PROVIDERS: ATTEND Physician Assistant Medical
DX: E03.9 Hypothyroidism, unspecified (principal)

== ENCOUNTER → 2020-08-13 | Outpatient (CLI) | payer BC, MEDICAID ==
--- NOTE | 2020-08-13 13:47 | REP ---
INDICATION: COUGH COMPARISON: None. TECHNIQUE: PA and lateral. FINDINGS: The mediastinum and cardiac silhouette are normal. The lung dudley are clear and without acute consolidation, effusion, or pneumothorax. The skeletal structures are intact and normal. IMPRESSION: No acute cardiopulmonary process. <Electronically signed by Brendon Anguiano > 08/13/20 [id number]
== END ==
LOC: M ADAMS 08:17
PROVIDERS: ATTEND Physician Assistant Medical
DX: R05 Cough (principal)

== ENCOUNTER → 2020-09-11 | Outpatient (REF) | payer BC, MEDICAID ==
[2020-09-11 14:33] LABS: BASO # 0.1 10^3/uL (0.0-0.2); EOS # 0.4 10^3/uL (0.0-0.5); EOS % 5.5 % (0.0-3.0); HEMATOCRIT 41.6 % (36.0-47.0); LYMPH # 1.6 10^3/uL (1.5-5.0); LYMPH % 22.9 % (24.0-44.0); MEAN CORPUSCULAR HEMOGLOBIN 31.7 pg (27.0-33.0); MEAN CORPUSCULAR HGB CONC 33.7 g/dl (32.0-36.5); MEAN CORPUSCULAR VOLUME 94.1 fl (80.0-96.0); MONO # 0.5 10^3/uL (0.0-0.8); MONO % 7.5 % (2.0-8.0); NEUTROPHILS # 4.4 10^3/uL (1.5-8.5); NEUTROPHILS % 62.7 % (36.0-66.0); PLATELET COUNT, AUTOMATED 220 10^3/uL (150-450); RED BLOOD COUNT 4.42 10^6/uL (4.00-5.40); WHITE BLOOD COUNT 7.1 10^3/uL (4.0-10.0)
[2020-09-11 15:27] LABS: ALBUMIN 3.8 GM/DL (3.2-5.2); ALT/SGPT 30 U/L (12-78); BILIRUBIN,TOTAL 0.6 MG/DL (0.2-1.0); BLOOD UREA NITROGEN 9 MG/DL (7-18); CALCIUM LEVEL 8.9 MG/DL (8.5-10.1); CARBON DIOXIDE LEVEL 26 MEQ/L (21-32); CHLORIDE LEVEL 108 MEQ/L (98-107); CHOLESTEROL LEVEL 153 MG/DL (<200); CHOLESTEROL RISK RATIO 3.255 (<5); CREATININE FOR GFR 0.66 MG/DL (0.55-1.30); FREE T4 1.11 NG/DL (0.76-1.46); GLOMERULAR FILTRATION RATE > 60.0 (>60); GLUCOSE, FASTING 81 MG/DL (70-100); HDL CHOLESTEROL 47 MG/DL (>40); LDL CHOLESTEROL 93 MG/DL (<100); NON-HDL-C 106 MG/DL; POTASSIUM SERUM 4.2 MEQ/L (3.5-5.1); SODIUM LEVEL 142 MEQ/L (136-145); TRIGLYCERIDES LEVEL 63 MG/DL (<150)
== END ==
LOC: M SFHCADAM 08:14
PROVIDERS: ATTEND Physician Assistant Medical
DX: Z00.00 Encounter for general adult medical examination without abnormal findings (principal); E03.9 Hypothyroidism, unspecified; E66.01 Morbid (severe) obesity due to excess calories; F32.0 Major depressive disorder, single episode, mild
CPT/HCPCS: 80053; 80061; 84439; 84443; 85025; G0123

== ENCOUNTER → 2021-01-14 | Outpatient (REF) | payer BC, MEDICAID ==
[2021-01-14 14:26] LABS: THYROID STIMULATING HORMONE 4.44 uIU/ML (0.358-3.740)
== END ==
LOC: M SFHCADAM 09:28
PROVIDERS: ATTEND Physician Assistant Medical
DX: E03.9 Hypothyroidism, unspecified (principal)

== ENCOUNTER → 2021-02-27 | Outpatient (CLI) | payer BC, MEDICAID | LOC: M LABSMTC 10:16 | PROVIDERS: ATTEND Pediatrics | DX: Z20.822 Contact with and (suspected) exposure to COVID-19 (principal) | CPT/HCPCS: C9803; U0003 ==

== ENCOUNTER → 2021-06-13 | Outpatient (REF) | payer BC, MEDICAID ==
[~2021-06-13] MED LIST changes: +FLUT1INH2 INH; +IMIT50TA PO; +LEVO750T13 PO; +LEVOTAB10 PO; +TOPI50TA9 PO
[2021-06-13 17:20] LABS: FREE T4 1.17 NG/DL (0.76-1.46); THYROID STIMULATING HORMONE 1.24 uIU/ML (0.358-3.740)
== END ==
LOC: M SFHCADAM 13:28
PROVIDERS: ATTEND Physician Assistant Medical
DX: E03.9 Hypothyroidism, unspecified (principal)

== ENCOUNTER 2021-06-14 09:49 | Emergency (ER) | payer BC, MEDICAID ==
[~2021-06-14] VITALS: Ht 172.7 cm; Wt 120.7 kg
[~2021-06-14 09:49] MED LIST changes: -FLUT1INH2 INH; -IMIT50TA PO; -LEVO750T13 PO; -LEVOTAB10 PO; -TOPI50TA9 PO
[2021-06-14] MEDS ORDERED: LEVOTAB10 PO (10:45)
[2021-06-14] MEDS ORDERED: FLUT1INH2 INH (10:45)
[2021-06-14] MEDS ORDERED: PROHANCE 279.3MG/ML 15ML VIAL As Ordered ONE (13:01)
[2021-06-14] MEDS ORDERED: PROHANCE 279.3MG/ML 5ML VIAL As Ordered ONE (13:01)
[2021-06-14 14:43] LABS: BASO % 0.5 % (0.0-1.0); EOS # 0.1 10^3/uL (0.0-0.5); EOS % 1.4 % (0.0-3.0); HEMOGLOBIN 13.9 g/dl (12.0-15.5); LYMPH # 1.3 10^3/uL (1.5-5.0); LYMPH % 15.2 % (24.0-44.0); MEAN CORPUSCULAR HEMOGLOBIN 31.7 pg (27.0-33.0); MEAN CORPUSCULAR HGB CONC 34.8 g/dl (32.0-36.5); MEAN CORPUSCULAR VOLUME 91.1 fl (80.0-96.0); MONO # 0.5 10^3/uL (0.0-0.8); MONO % 5.8 % (2.0-8.0); NEUTROPHILS # 6.4 10^3/uL (1.5-8.5); NEUTROPHILS % 76.9 % (36.0-66.0); PLATELET COUNT, AUTOMATED 232 10^3/uL (150-450); RED BLOOD COUNT 4.39 10^6/uL (4.00-5.40); WHITE BLOOD COUNT 8.3 10^3/uL (4.0-10.0)
[2021-06-14 14:54] LABS: INR 1.01; PROTHROMBIN TIME 13.7 SECONDS (12.7-14.5)
[2021-06-14 15:13] LABS: ERYTHROCYTE SEDIMENTATION RATE 9 mm/hr (0-20)
[2021-06-14 15:15] LABS: ALBUMIN 3.9 GM/DL (3.2-5.2); ALT/SGPT 27 U/L (12-78); BILIRUBIN,DIRECT 0.2 MG/DL (0.0-0.2); BILIRUBIN,TOTAL 0.8 MG/DL (0.2-1.0); BLOOD UREA NITROGEN 7 MG/DL (7-18); CALCIUM LEVEL 8.9 MG/DL (8.5-10.1); CARBON DIOXIDE LEVEL 26 MEQ/L (21-32); CHLORIDE LEVEL 111 MEQ/L (98-107); CREATININE FOR GFR 0.57 MG/DL (0.55-1.30); GLOMERULAR FILTRATION RATE > 60.0 (>60); GLUCOSE, FASTING 85 MG/DL (70-100); POTASSIUM SERUM 3.9 MEQ/L (3.5-5.1); SODIUM LEVEL 140 MEQ/L (136-145); TOTAL PROTEIN 7.1 GM/DL (6.4-8.2)
[2021-06-14 17:30] VITALS: BP 130/61
[2021-06-14 17:49] LABS: APPEARANCE, CSF CLEAR (CLEAR); COLOR, CSF COLORLESS (COLORLESS); CSF TUBE# CELL CNT TUBE 1
[2021-06-14 18:06] LABS: CSF TUBE# GLU TUBE 2; CSF TUBE# TP TUBE 3; GLUCOSE CSF 53 MG/DL (40-75); TOTAL PROTEIN,CSF 32 MG/DL (15-45)
[2021-06-14] MEDS ORDERED: TOPI50TA9 PO (19:16)
[2021-06-14] MEDS ORDERED: IMIT50TA PO (19:16)
[2021-06-14] MEDS ORDERED: LEVO750T13 PO (19:18)
[2021-06-14] MEDS: TOPIRAMATE (TopAMAX) 25 MG TAB PO ONE (19:20)
== END 2021-06-14 19:27 | disposition home or self-care (01) ==
LOC: M ED 09:49
DX: G93.2 Benign intracranial hypertension (principal); J32.4 Chronic pansinusitis; E03.9 Hypothyroidism, unspecified; J45.909 Unspecified asthma, uncomplicated; E66.9 Obesity, unspecified; Z79.890 Hormone replacement therapy; Z79.51 Long term (current) use of inhaled steroids; Z79.899 Other long term (current) drug therapy; Z88.8 Allergy status to other drugs, medicaments and biological substances; Z91.040 Latex allergy status; Z86.16 Personal history of COVID-19
CPT/HCPCS: 36415; 70546; 70551; 77002; 80047; 80048; 80076; 82945; 83605; 84157; 84443; 84702; 85025; 85610; 85652; 85730; 86140; 87040; 87070; 87205; 89050; 99284; A9576

== ENCOUNTER → 2021-09-17 | Outpatient (CLI) | payer BC, MEDICAID ==
[~2021-09-17] MED LIST changes: +FLUT1INH2 INH; +IMIT50TA PO; +LEVO750T13 PO; +LEVOTAB10 PO; +TOPI50TA9 PO
== END ==
LOC: M RAD 09:26
PROVIDERS: ATTEND Otolaryngology
DX: J30.9 Allergic rhinitis, unspecified (principal); J34.2 Deviated nasal septum

== ENCOUNTER → 2021-10-04 | Outpatient (CLI) | payer BC, MEDICAID | LOC: M RAD 09:50 | PROVIDERS: ATTEND Otolaryngology | DX: J32.4 Chronic pansinusitis (principal) ==

== ENCOUNTER → 2021-11-20 | Outpatient (CLI) | payer BC, MEDICAID ==
[~2021-11-20] MED LIST changes: +ACE65ERTAB PO; +FLON1SPR; +LEVO1TAB40 PO; -LEVO750T13 PO
== END ==
LOC: M LABSMTC 10:01
PROVIDERS: ATTEND Anesthesiology
DX: Z01.812 Encounter for preprocedural laboratory examination (principal); Z20.822 Contact with and (suspected) exposure to COVID-19

== ENCOUNTER 2021-11-25 10:04 | Day surgery (SDC) | payer MEDICAID ==
[~2021-11-25] VITALS: Ht 172.7 cm; Wt 110.2 kg
[~2021-11-25 10:04] MED LIST changes: +dexameTHASONE 4 MG/ML 1ML VIAL (J1100 PER 1MG) IV ONE
[2021-11-25] MEDS ORDERED: SODIUM CHLORIDE 0.9% NASAL GEL 15GM (AYR) As Ordered ONE (13:56)
[2021-11-25] MEDS ORDERED: EPINEPHrine 1MG/ML INJ 30ML MD-VIAL As Ordered ONE (13:56)
[2021-11-25] MEDS ORDERED: METHYLENE BLUE 0.5% (5MG/ML) 10 ML AMP (PROVAYBLUE) As Ordered ONE (13:56)
[2021-11-25] MEDS ORDERED: LIDOCAINE W/EPINEPHRINE 1% 20ML VIAL As Ordered ONE (13:56)
[2021-11-25] MEDS ORDERED: fentaNYL 100 MCG/2 ML INJECTION As Ordered ONE ×3 (13:58→15:42)
[2021-11-25] MEDS ORDERED: MIDAZOLAM INJ 2MG/2ML VIAL (J2250 PER 1MG) As Ordered ONE (13:58)
[2021-11-25] MEDS ORDERED: dexameTHASONE 4 MG/ML 1ML VIAL (J1100 PER 1MG) As Ordered ONE (13:58)
[2021-11-25] MEDS ORDERED: LIDOCAINE 2% 100MG/5ML SDV (FOR ANES.) As Ordered ONE (13:58)
[2021-11-25] MEDS ORDERED: propofoL 200 MG/20 ML VIAL As Ordered ONE ×2 (13:58→15:35)
[2021-11-25] MEDS ORDERED: ROCURONIUM BROMIDE 50 MG/5 ML VIAL As Ordered ONE ×2 (13:58→14:34)
[2021-11-25] MEDS ORDERED: ACETAMINOPHEN 1000MG 100ML IV BTL (OFIRMEV) (J0131 PER 10MG) As Ordered ONE (14:08)
[2021-11-25] MEDS ORDERED: ONDANSETRON 4MG 2ML VIAL As Ordered ONE (14:11)
[2021-11-25] MEDS ORDERED: SUGAMMADEX SODIUM 500 MG/5 ML VIAL (BRIDION) As Ordered ONE (15:42)
[2021-11-25] MEDS ORDERED: SEVOFLURANE INHAL SOLN 250 ML BTL As Ordered ONE (16:14)
[2021-11-25] MEDS ORDERED: oxyCODONE 5MG TAB PO PRN (16:55)
[2021-11-25] MEDS ORDERED: ONDANSETRON 4MG 2ML VIAL IV PRN (16:55)
[2021-11-25] MEDS ORDERED: fentaNYL 100 MCG/2 ML INJECTION IV PRN (16:55)
[2021-11-25] MEDS ORDERED: METOCLOPRAMIDE INJ 10MG/2ML VIAL (J2765 PER 1) IV PRN (16:55)
[2021-11-25] MEDS ORDERED: HYDROMORPHONE HCL 0.5 MG/ 0.5 ML SYRINGE (J1170 PER 1) IV PRN (16:55)
[2021-11-25] MEDS ORDERED: LR 1,000 ML IV SCH (16:55)
[2021-11-25] MEDS ORDERED: EXCEDRIN MIGRAINE TABLET PO PRN (18:20)
[2021-11-25 18:40] VITALS: BP 133/65
== END 2021-11-25 18:48 | disposition home or self-care (01) ==
LOC: M SDC 10:04
PROVIDERS: ATTEND Otolaryngology
DX: J32.9 Chronic sinusitis, unspecified (principal); J34.2 Deviated nasal septum; Z91.040 Latex allergy status; Z88.8 Allergy status to other drugs, medicaments and biological substances; F41.9 Anxiety disorder, unspecified; J45.909 Unspecified asthma, uncomplicated; E03.9 Hypothyroidism, unspecified; K21.9 Gastro-esophageal reflux disease without esophagitis; Z79.899 Other long term (current) drug therapy
CPT/HCPCS: 30520; 31254; 31267; 31296; 81025; 88300; 88305; C2625; J0131; J0171; J1100; J2250; J2405; J2765; J3010; Q9968

== ENCOUNTER → 2022-04-15 | Outpatient (REF) | payer OTHER ==
[~2022-04-15] MED LIST changes: -dexameTHASONE 4 MG/ML 1ML VIAL (J1100 PER 1MG) IV ONE
== END ==
LOC: M SFHCADAM 10:51
PROVIDERS: ATTEND Physician Assistant Medical
DX: E03.9 Hypothyroidism, unspecified (principal)

== ENCOUNTER → 2022-04-30 | Outpatient (REF) | payer OTHER | LOC: M SFHCDERM 13:49 | PROVIDERS: ATTEND Physician Assistant | DX: I78.1 Nevus, non-neoplastic (principal) ==

== ENCOUNTER → 2022-06-17 | Outpatient (REF) | payer OTHER ==
[~2022-06-17] MED LIST changes: +TOPI-254 PO; -TOPI50TA9 PO
== END ==
LOC: M SFHCDERM 14:04
PROVIDERS: ATTEND Dermatology
DX: I78.1 Nevus, non-neoplastic (principal)

== ENCOUNTER → 2022-06-19 | Outpatient (CLI) | payer OTHER | LOC: M WHC 09:05 | PROVIDERS: ATTEND Physician Assistant Medical | DX: Z12.31 Encounter for screening mammogram for malignant neoplasm of breast (principal); N64.4 Mastodynia ==

== ENCOUNTER → 2022-06-27 | Outpatient (CLI) | payer OTHER ==
[2022-06-27 14:16] LABS: BASO # 0.1 10^3/uL (0.0-0.2); EOS # 0.2 10^3/uL (0.0-0.5); EOS % 3.3 % (0.0-3.0); HEMATOCRIT 40.4 % (36.0-47.0); HEMOGLOBIN 13.1 g/dl (12.0-15.5); MEAN CORPUSCULAR HEMOGLOBIN 30.7 pg (27.0-33.0); MEAN CORPUSCULAR HGB CONC 32.4 g/dl (32.0-36.5); MEAN CORPUSCULAR VOLUME 94.6 fl (80.0-96.0); MONO # 0.5 10^3/uL (0.0-0.8); MONO % 8.2 % (2.0-8.0); NEUTROPHILS # 3.4 10^3/uL (1.5-8.5); NEUTROPHILS % 55.2 % (36.0-66.0); PLATELET COUNT, AUTOMATED 239 10^3/uL (150-450); RED BLOOD COUNT 4.27 10^6/uL (4.00-5.40); WHITE BLOOD COUNT 6.1 10^3/uL (4.0-10.0)
[2022-06-27 14:35] LABS: ALBUMIN 3.7 G/DL (3.2-5.2); ALKALINE PHOSPHATASE 67 U/L (46-116); ALT/SGPT 26 U/L (7.0-40); AST/SGOT 24 U/L (<34); BILIRUBIN,TOTAL 0.6 MG/DL (0.3-1.2); BLOOD UREA NITROGEN 7 MG/DL (9-23); CALCIUM LEVEL 8.6 MG/DL (8.5-10.1); CARBON DIOXIDE LEVEL 30 MMOL/L (20-31); CHLORIDE LEVEL 108 MMOL/L (98-107); CHOLESTEROL LEVEL 153 MG/DL (<200); CHOLESTEROL RISK RATIO 3.03 (<5); CREATININE FOR GFR 0.57 MG/DL (0.55-1.30); GLOMERULAR FILTRATION RATE > 60.0 (>60); GLUCOSE, FASTING 78 MG/DL (60-100); HDL CHOLESTEROL 50.4 MG/DL (>40); LDL CHOLESTEROL 92.6 MG/DL (<100); NON-HDL-C 102.6 MG/DL; POTASSIUM SERUM 4.7 MMOL/L (3.5-5.1); SODIUM LEVEL 142 MMOL/L (136-145); TOTAL PROTEIN 6.5 G/DL (5.7-8.2); TRIGLYCERIDES LEVEL 50 MG/DL (<150)
[2022-06-27 14:36] LABS: THYROID STIMULATING HORMONE 3.427 uIU/ML (0.55-4.78)
== END ==
LOC: M LAB 11:11
PROVIDERS: ATTEND Physician Assistant Medical
DX: E03.9 Hypothyroidism, unspecified (principal)

== ENCOUNTER → 2023-05-18 | Outpatient (REF) | payer OTHER ==
[~2023-05-18] MED LIST changes: +TOPI-21 PO; -TOPI-254 PO
== END ==
LOC: M SFHCADAM 13:11
PROVIDERS: ATTEND Physician Assistant Medical
DX: E03.9 Hypothyroidism, unspecified (principal)

== ENCOUNTER → 2023-08-13 | Outpatient (REF) | payer OTHER | LOC: M SFHCPLAZ 16:36 | PROVIDERS: ATTEND Physician Assistant Medical | DX: J02.9 Acute pharyngitis, unspecified (principal) ==

== ENCOUNTER → 2024-01-25 | Outpatient (REF) | payer OTHER ==
[2024-01-25 19:10] LABS: BASO # 0.1 10^3/uL (0.0-0.2); BASO % 1.2 % (0.0-1.0); EOS # 0.4 10^3/uL (0.0-0.5); EOS % 4.8 % (0.0-3.0); HEMOGLOBIN 13.4 g/dl (12.0-15.5); LYMPH % 23.3 % (24.0-44.0); MEAN CORPUSCULAR HEMOGLOBIN 31.1 pg (27.0-33.0); MEAN CORPUSCULAR HGB CONC 32.7 g/dl (32.0-36.5); MEAN CORPUSCULAR VOLUME 95.1 fl (80.0-96.0); MONO # 0.6 10^3/uL (0.0-0.8); MONO % 7.4 % (2.0-8.0); NEUTROPHILS # 5.3 10^3/uL (1.5-8.5); NEUTROPHILS % 63.1 % (36.0-66.0); PLATELET COUNT, AUTOMATED 273 10^3/uL (150-450); RED BLOOD COUNT 4.31 10^6/uL (4.00-5.40); WHITE BLOOD COUNT 8.4 10^3/uL (4.0-10.0)
[2024-01-25 19:18] LABS: ALBUMIN 3.7 G/DL (3.2-5.2); ALKALINE PHOSPHATASE 72 U/L (46-116); ALT/SGPT 28 U/L (7.0-40); AST/SGOT 19 U/L (<34); BILIRUBIN,TOTAL 0.6 MG/DL (0.3-1.2); BLOOD UREA NITROGEN 9 MG/DL (9-23); CALCIUM LEVEL 9.2 MG/DL (8.5-10.1); CARBON DIOXIDE LEVEL 28 MMOL/L (20-31); CHLORIDE LEVEL 107 MMOL/L (98-107); CHOLESTEROL LEVEL 167 MG/DL (<200); CHOLESTEROL RISK RATIO 3.12 (<5); CREATININE FOR GFR 0.56 MG/DL (0.55-1.30); GLOMERULAR FILTRATION RATE > 60.0 (>60); GLUCOSE, FASTING 77 MG/DL (60-100); HDL CHOLESTEROL 53.4 MG/DL (>40); NON-HDL-C 113.6 MG/DL; POTASSIUM SERUM 3.9 MMOL/L (3.5-5.1); SODIUM LEVEL 140 MMOL/L (136-145); THYROID STIMULATING HORMONE 2.682 uIU/ML (0.55-4.78); TOTAL 25(OH) VITAMIN D 19.7 NG/ML (20.0-100.0); TOTAL PROTEIN 7.1 G/DL (5.7-8.2); TRIGLYCERIDES LEVEL 103 MG/DL (<150)
[2024-01-25 19:19] LABS: FREE T4 1.48 NG/DL (0.89-1.76)
== END ==
LOC: M SFHCADAM 12:06
PROVIDERS: ATTEND Physician Assistant Medical
DX: I10 Essential (primary) hypertension (principal); E66.01 Morbid (severe) obesity due to excess calories; F32.81 Premenstrual dysphoric disorder; F41.1 Generalized anxiety disorder; E03.9 Hypothyroidism, unspecified; F32.0 Major depressive disorder, single episode, mild; G93.2 Benign intracranial hypertension; Z12.4 Encounter for screening for malignant neoplasm of cervix

== ENCOUNTER → 2024-08-01 | Outpatient (REF) | payer OTHER ==
[~2024-08-01] MED LIST changes: +VANC125C13 PO; -VANC125C3 PO
[2024-08-01 13:58] LABS: THYROID STIMULATING HORMONE 1.695 uIU/ML (0.55-4.78)
== END ==
LOC: M SFHCADAM 09:47
PROVIDERS: ATTEND Physician Assistant Medical
DX: E03.9 Hypothyroidism, unspecified (principal)

== ENCOUNTER → 2025-02-08 | Outpatient (REF) | payer OTHER ==
[~2025-02-08] MED LIST changes: -ACE65ERTAB PO; +ACET-1593 PO
[2025-02-08 18:14] LABS: ALT/SGPT 20.0 U/L (7.0-40); AST/SGOT 18.0 U/L (<34)
[2025-02-08 18:17] LABS: TOTAL 25(OH) VITAMIN D 34.1 NG/ML (20.0-100.0)
[2025-02-08 18:18] LABS: ALT/SGPT 20 U/L (7.0-40); AST/SGOT 16 U/L (<34); CALCIUM LEVEL 9.6 MG/DL (8.5-10.1); CARBON DIOXIDE LEVEL 23 MMOL/L (20-31); CHLORIDE LEVEL 110 MMOL/L (98-107); CHOLESTEROL LEVEL 166 MG/DL (<200); CHOLESTEROL RISK RATIO 3.17 (<5); CREATININE FOR GFR 0.66 MG/DL (0.55-1.30); GLOMERULAR FILTRATION RATE > 90.0 (>60); LDL CHOLESTEROL 99.1 MG/DL (<100); NON-HDL-C 113.7 MG/DL; POTASSIUM SERUM 3.8 MMOL/L (3.5-5.1); SODIUM LEVEL 145 MMOL/L (136-145); TRIGLYCERIDES LEVEL 73 MG/DL (<150)
[2025-02-08 18:19] LABS: BASO # 0.1 10^3/uL (0.0-0.2); BASO % 0.4 % (0.0-1.0); EOS # 0.1 10^3/uL (0.0-0.5); EOS % 0.8 % (0.0-3.0); FREE T4 1.35 NG/DL (0.89-1.76); LYMPH # 1.5 10^3/uL (1.5-5.0); LYMPH % 9.7 % (24.0-44.0); MONO # 1.0 10^3/uL (0.0-0.8); MONO % 6.7 % (2.0-8.0); NEUTROPHILS # 12.3 10^3/uL (1.5-8.5); NEUTROPHILS % 82.1 % (36.0-66.0); PLATELET COUNT, AUTOMATED 245 10^3/uL (150-450)
[2025-02-08 18:33] LABS: ESTIMATED AVERAGE GLUCOSE 97.0 MG/DL (60-110)
== END ==
LOC: M SFHCADAM 11:33
PROVIDERS: ATTEND Physician Assistant Medical
DX: R14.0 Abdominal distension (gaseous) (principal); E03.9 Hypothyroidism, unspecified; E66.01 Morbid (severe) obesity due to excess calories; F32.81 Premenstrual dysphoric disorder; E55.9 Vitamin D deficiency, unspecified; B35.1 Tinea unguium